=== PATIENT | female | born 2000 | race Two or more races ===

== ENCOUNTER 2025-04-28 13:11 | Outpatient (CLI) | payer OTHER | END 2025-04-28 13:24 | disposition home or self-care (01) | LOC: PRENATAL 13:11 | PROVIDERS: ATTEND Obstetrics & Gynecology Maternal & Fetal Medicine | DX: O36.80X0 Pregnancy with inconclusive fetal viability, not applicable or unspecified (principal); Z36.82 Encounter for antenatal screening for nuchal translucency; Z14.8 Genetic carrier of other disease; Z3A.12 12 weeks gestation of pregnancy ==

== ENCOUNTER → 2025-06-23 07:08 | Outpatient (CLI) | payer OTHER | END | disposition home or self-care (01) | LOC: PRENATAL 07:08 | PROVIDERS: ATTEND Obstetrics & Gynecology Maternal & Fetal Medicine | DX: O44.02 Complete placenta previa NOS or without hemorrhage, second trimester (principal); O99.891 Other specified diseases and conditions complicating pregnancy; O28.3 Abnormal ultrasonic finding on antenatal screening of mother; Z3A.20 20 weeks gestation of pregnancy ==

== ENCOUNTER 2025-08-17 12:52 | Outpatient (CLI) | payer OTHER | END 2025-08-17 12:53 | disposition home or self-care (01) | LOC: PRENATAL 12:52 | PROVIDERS: ATTEND Obstetrics & Gynecology Maternal & Fetal Medicine | DX: O26.843 Uterine size-date discrepancy, third trimester (principal); O28.3 Abnormal ultrasonic finding on antenatal screening of mother; O99.013 Anemia complicating pregnancy, third trimester; Z3A.29 29 weeks gestation of pregnancy ==

== ENCOUNTER → 2025-08-24 08:07 | Outpatient (CLI) | payer OTHER | END | disposition home or self-care (01) | LOC: PRENATAL 08:07 | PROVIDERS: ATTEND Obstetrics & Gynecology Maternal & Fetal Medicine | DX: Z76.1 Encounter for health supervision and care of foundling (principal) ==